=== PATIENT | female | born 1960 | race Caucasian/White ===

== ENCOUNTER 2021-03-10 00:16 | Observation (INO) | payer OTHER, SELFPAY ==
[2021-03-10 01:17] LABS: #Basophils 0.1 10x3/uL (0.0-0.2); #Eosinphils 0.2 10x3/uL (0.0-0.5); #Monocytes 0.5 10x3/uL (0.0-1.1); #Neutrophils 5.6 10x3/uL (1.5-8.4); %Basophils 0.9 % (0.0-2.0); %Eosinophils 1.6 % (0.0-6.0); %Lymphocytes 33.2 % (18.0-47.0); %Monocytes 5.5 % (0.0-10.0); %Neutrophils 58.3 % (40.0-75.0); Hemoglobin 17.5 g/dL (12.0-15.5); Mean Corpuscular HGB CONC 33.3 g/dL (32.0-36.0); Mean Corpuscular Volume 93.3 fl (81.6-98.3); Mean Platelet Volume 10.8 fl (7.4-10.4); Platelet Count 263 10x3/uL (150-450); RBC Distribution Width 13.1 % (11.5-14.5); Red Blood Cell (RBC) Count 5.64 10x6/uL (3.90-5.03); White Blood Cell (WBC) Count 9.6 10x3/uL (3.5-10.5)
[2021-03-10] MEDS ORDERED: Nitroglycerin 2% Ointment 1 INCH/1 GM Packet ONE (01:28)
[2021-03-10] MEDS ORDERED: Aspirin Chewable 81 MG TAB ONE ×2 (01:28→01:32)
[2021-03-10 01:34] LABS: ALT (SGPT) 16 U/L (8-55); AST (SGOT) 12 U/L (5-34); Albumin 4.5 g/dL (3.4-4.8); Alkaline Phosphatase 165 U/L (40-110); Anion Gap 17 mmol/L (10-20); BUN (Urea Nitrogen) 9 mg/dL (9.8-20.1); Bilirubin, Total 0.5 mg/dL (0.2-1.2); Calc. Creatinine Clearance 0 mL/min (70-130); Calcium 10.2 mg/dL (7.8-10.44); Carbon Dioxide 20 mmol/L (23-31); Chloride 105 mmol/L (98-107); Globulin 2.7 g/dL (2.4-3.5); Glucose 341 mg/dL (80-115); Potassium 3.8 mmol/L (3.5-5.1); Protein, Total 7.2 g/dL (5.8-8.1); Sodium 138 mmol/L (136-145)
[2021-03-10] MEDS ORDERED: Morphine 4 MG/ML VIAL ONE (01:48)
[2021-03-10] MEDS ORDERED: Calcium Carbonate 500 MG ChewTAB PO PRN (02:09)
[2021-03-10] MEDS ORDERED: Acetaminophen 325 MG TAB PO PRN (02:09)
[2021-03-10] MEDS ORDERED: HYDROcodone/Acetaminophen 5/325 mg Tablet PO PRN (02:09)
[2021-03-10] MEDS ORDERED: Ondansetron PF 4 MG/2 ML Vial IVP PRN (02:09)
[2021-03-10] MEDS ORDERED: Zolpidem Tartrate 5 MG TAB PO PRN (02:09)
[2021-03-10] MEDS ORDERED: Dextrose 50% Abboject 50 ML SYRINGE SLOW IVP PRN (02:09)
[2021-03-10] MEDS ORDERED: Guaifenesin DM 100-10/5 ML UDCUP PO PRN (02:09)
[2021-03-10] MEDS ORDERED: Dextrose 5% in Water 1,000 ML IV PRN (02:09)
[2021-03-10] MEDS ORDERED: HumaLOG 300 UNITS/3 ML VIAL SC PRN (02:09)
[2021-03-10] MEDS ORDERED: Senokot S 8.6-50 MG TAB PO PRN (02:09)
[2021-03-10] MEDS ORDERED: Nitroglycerin 0.4 MG TAB (25 Tab Bottle) SL PRN (02:12)
[2021-03-10] MEDS ORDERED: Enoxaparin Sodium 80 MG/0.8 ML SYRINGE ONE (04:16)
[2021-03-10 05:43] VITALS: BMI 27.6
[2021-03-10] MEDS ORDERED: Morphine 2 MG/ML VIAL SLOW IVP PRN (06:15)
[2021-03-10] MEDS ORDERED: Prevnar 13-Val Conj/PF 0.5 ML SYRINGE IM ONE (06:30)
[2021-03-10 06:47] LABS: Cardiac Risk 6.2 (Less than 4.5)
[2021-03-10] MEDS: Budesonide 0.5 MG/2 ML NEB NEB SCH ×2 (07:05→19:02)
[2021-03-10] MEDS ORDERED: Sodium Chloride 0.9% 500 ML IV SCH (07:30)
[2021-03-10] MEDS ORDERED: Artificial Tear Sol 15 ML BOT EA EYE PRN (07:35)
[2021-03-10] MEDS ORDERED: Cepastat Lozenges 1 LOZ PO PRN (07:35)
[2021-03-10] MEDS ORDERED: Ondansetron ODT 4 MG TAB PO PRN (07:35)
[2021-03-10] MEDS ORDERED: Loperamide HCl 2 MG CAP PO PRN (07:35)
[2021-03-10] MEDS ORDERED: Bisacodyl 5 MG TAB PO PRN (07:35)
[2021-03-10] MEDS ORDERED: Loratadine 10 MG TAB PO PRN (07:35)
[2021-03-10] MEDS ORDERED: Sodium Chloride 0.65% Nasal 44 ML BOT EA NARE PRN (07:35)
[2021-03-10] MEDS ORDERED: GUAIFENESIN SF SOLN 200 MG/10 ML UDCUP PO PRN (07:35)
[2021-03-10] MEDS ORDERED: Hydrocerin (Eucerin) Cream 120 gm Jar TOP PRN (07:35)
[2021-03-10] MEDS ORDERED: hydrALAZINE 20 MG/ML VIAL SLOW IVP PRN (07:35)
[2021-03-10] MEDS ORDERED: Benzonatate 100 MG CAP PO PRN (07:35)
[2021-03-10 09:28] LABS: Hemoglobin A1c 8.7 % (4.0-6.0)
[2021-03-10] MEDS ORDERED: Communication Order-Pharmacy FS SCH (10:15)
[2021-03-10 10:36] LABS: Anion Gap 13 mmol/L (10-20); BUN (Urea Nitrogen) 7 mg/dL (9.8-20.1); Calc. Creatinine Clearance 124 mL/min (70-130); Calcium 9.5 mg/dL (7.8-10.44); Carbon Dioxide 23 mmol/L (23-31); Chloride 106 mmol/L (98-107); Glucose 246 mg/dL (80-115); Potassium 3.8 mmol/L (3.5-5.1); Sodium 138 mmol/L (136-145)
[2021-03-10] MEDS: glipiZIDE 5 MG TAB PO SCH ×2 (11:29→18:30)
[2021-03-10] MEDS: Aspirin 81 mg Enteric Coated Tablet PO SCH (11:29)
[2021-03-10] MEDS: Gabapentin 300 MG CAP PO SCH ×2 (11:29→22:42)
[2021-03-10] MEDS: Losartan 25 MG TAB PO SCH (11:29)
[2021-03-10] MEDS: Carvedilol 6.25 MG TAB PO SCH ×2 (11:29→18:30)
[2021-03-10] MEDS ORDERED: Enoxaparin Sodium 80 MG/0.8 ML SYRINGE SC SCH (14:00)
[2021-03-10 16:36] LABS: SARS-CoV-2 NAA Rapid Test Not Detected (NotDetected)
[2021-03-10] MEDS: Atorvastatin Calcium 40 MG TAB PO SCH (22:41)
[2021-03-11 04:59] LABS: PTT 26.9 sec (22.0-33.0); Prothrombin Time 10.6 sec (9.5-12.1)
[2021-03-11 05:03] LABS: ALT (SGPT) 11 U/L (8-55); AST (SGOT) 12 U/L (5-34); Albumin 3.8 g/dL (3.4-4.8); Alkaline Phosphatase 110 U/L (40-110); Anion Gap 12 mmol/L (10-20); BUN (Urea Nitrogen) 8 mg/dL (9.8-20.1); Bilirubin, Total 0.5 mg/dL (0.2-1.2); Calc. Creatinine Clearance 143 mL/min (70-130); Calcium 9.6 mg/dL (7.8-10.44); Carbon Dioxide 23 mmol/L (23-31); Chloride 111 mmol/L (98-107); Globulin 2.2 g/dL (2.4-3.5); Glucose 144 mg/dL (80-115); Magnesium 1.9 mg/dL (1.6-2.6); Phosphorus 3.7 mg/dL (2.3-4.7); Potassium 3.7 mmol/L (3.5-5.1); Sodium 142 mmol/L (136-145)
[2021-03-11 05:11] LABS: #Basophils 0.1 10x3/uL (0.0-0.2); #Eosinphils 0.2 10x3/uL (0.0-0.5); #Monocytes 0.5 10x3/uL (0.0-1.1); #Neutrophils 3.8 10x3/uL (1.5-8.4); %Basophils 0.9 % (0.0-2.0); %Eosinophils 2.3 % (0.0-6.0); %Lymphocytes 35.8 % (18.0-47.0); %Monocytes 6.4 % (0.0-10.0); %Neutrophils 54.2 % (40.0-75.0); Hemoglobin 15.6 g/dL (12.0-15.5); Mean Platelet Volume 10.7 fl (7.4-10.4); Platelet Count 215 10x3/uL (150-450); RBC Distribution Width 13.1 % (11.5-14.5); Red Blood Cell (RBC) Count 5.03 10x6/uL (3.90-5.03)
[2021-03-11] MEDS: Sodium Chloride 0.9% 1,000 ML IV SCH ×2 (06:38→17:43)
[2021-03-11] MEDS: Gabapentin 300 MG CAP PO SCH ×2 (08:18→20:28)
[2021-03-11] MEDS: Losartan 25 MG TAB PO SCH (08:19)
[2021-03-11] MEDS: Aspirin 81 mg Enteric Coated Tablet PO SCH (08:19)
[2021-03-11] MEDS: Carvedilol 6.25 MG TAB PO SCH ×2 (08:19→17:43)
[2021-03-11] MEDS: glipiZIDE 5 MG TAB PO SCH ×2 (08:19→17:43)
[2021-03-11] MEDS ORDERED: Nitroglycerin 50 MG/250 ML BOT 250 ML ONE (12:24)
[2021-03-11] MEDS ORDERED: Heparin 10,000 UNITS/ 10 ML VIAL ONE (12:24)
[2021-03-11] MEDS ORDERED: Lidocaine 1% PF 5 ML VIAL ONE (12:24)
[2021-03-11] MEDS ORDERED: Adenosine 6 MG/2 ML VIAL ONE (12:25)
[2021-03-11] MEDS ORDERED: Verapamil 5 MG/2 ML VIAL ONE (12:25)
[2021-03-11] MEDS ORDERED: Bivalirudin 250 MG VIAL ONE (12:25)
[2021-03-11] MEDS ORDERED: Fentanyl 100 MCG/2 ML VIAL ONE (12:41)
[2021-03-11] MEDS ORDERED: Midazolam HCl 2 mg/2 ml Vial ONE (12:42)
[2021-03-11] MEDS ORDERED: TICAGRELOR 90 MG TABLET ONE (12:47)
[2021-03-11] MEDS ORDERED: Nitroglycerin 0.4 MG TAB (25 Tab Bottle) SL PRN (13:44)
[2021-03-11] MEDS ORDERED: Acetaminophen/Codeine 30-300mg Tablet PO PRN ×2 (13:44)
[2021-03-11] MEDS ORDERED: Sodium Chloride 0.9% 200 ML IV PRN (13:44)
[2021-03-11] MEDS ORDERED: Heparin 1,000 UNITS/ML VIAL ONE (13:50)
[2021-03-11] MEDS: Budesonide 0.5 MG/2 ML NEB NEB SCH ×2 (17:43→20:37)
[2021-03-11 20:21] VITALS: BP 116/72; TEMP 97
[2021-03-11] MEDS: Atorvastatin Calcium 40 MG TAB PO SCH (20:27)
[2021-03-11] MEDS ORDERED: TICAGRELOR 90 MG TABLET PO SCH (21:00)
[2021-03-12] MEDS ORDERED: Clopidogrel Bisulfate 75 MG TAB PO SCH (09:00)
== END 2021-03-11 20:30 | disposition home or self-care (01) ==
LOC: CSHERS 00:16 → CSHTELE 05:20
PROVIDERS: ADMIT Student in an Organized Health Care Education/Training Program; ATTEND Hospitalist
DX: I25.110 Atherosclerotic heart disease of native coronary artery with unstable angina pectoris (principal); F17.210 Nicotine dependence, cigarettes, uncomplicated; J44.9 Chronic obstructive pulmonary disease, unspecified; E11.22 Type 2 diabetes mellitus with diabetic chronic kidney disease; I13.10 Hypertensive heart and chronic kidney disease without heart failure, with stage 1 through stage 4 chronic kidney disease, or unspecified chronic kidney disease; N18.2 Chronic kidney disease, stage 2 (mild); E11.65 Type 2 diabetes mellitus with hyperglycemia; E11.40 Type 2 diabetes mellitus with diabetic neuropathy, unspecified; D75.1 Secondary polycythemia; E78.5 Hyperlipidemia, unspecified; Z95.5 Presence of coronary angioplasty implant and graft; Z20.822 Contact with and (suspected) exposure to COVID-19; Z71.6 Tobacco abuse counseling; Z79.891 Long term (current) use of opiate analgesic; Z79.899 Other long term (current) drug therapy; Z79.82 Long term (current) use of aspirin; Z79.84 Long term (current) use of oral hypoglycemic drugs; Z88.2 Allergy status to sulfonamides
CPT/HCPCS: 36415; 36416; 71045; 80053; 80061; 82553; 83036; 83735; 83880; 84100; 84484; 85025; 85347; 85610; 85730; 92928; 93005; 93306; 93458; 94640; 96372; 96374; 99152; 99153; C1874; C1887; C9600; G0378; J0153; J0583; J1644; J1650; J2250; J2270; J3010; J7030; J7050; J7626; U0002

== ENCOUNTER 2023-12-09 13:16 | Emergency (ER) | payer SELFPAY ==
[2023-12-09] MEDS ORDERED: traMADol HCl 50 MG TAB ONE (15:10)
== END 2023-12-09 15:55 | disposition home or self-care (01) ==
LOC: CSHERS 13:16
DX: S82.032A Displaced transverse fracture of left patella, initial encounter for closed fracture (principal); I87.8 Other specified disorders of veins; M25.462 Effusion, left knee; E11.9 Type 2 diabetes mellitus without complications; I10 Essential (primary) hypertension; F17.210 Nicotine dependence, cigarettes, uncomplicated; W19.XXXA Unspecified fall, initial encounter

== ENCOUNTER 2024-06-14 05:38 | Day surgery (SDC) | payer OTHER ==
[2024-06-13 14:45] VITALS: BMI 27.5
[2024-06-14] MEDS ORDERED: Bupivacaine HCl 0.5%/Epinephrine 1:200,000/PF 30 ml Vial ONE (06:14)
[2024-06-14] MEDS ORDERED: Lidocaine 2% PF 5 ML VIAL ONE (06:41)
[2024-06-14] MEDS ORDERED: PROPOFOL 20 ML ONE (06:42)
[2024-06-14] MEDS ORDERED: CEFAZOLIN 2 GM VIAL ONE (06:56)
[2024-06-14] MEDS ORDERED: Dexamethasone 4 mg/ml Vial ONE (07:03)
[2024-06-14] MEDS ORDERED: Ondansetron PF 4 MG/2 ML Vial ONE (07:03)
[2024-06-14] MEDS ORDERED: fentaNYL 50 mcg/mL 1 mL Vial ONE (07:13)
[2024-06-14] MEDS ORDERED: HYDROcodone/Acetaminophen 5/325 mg Tablet ONE (08:19)
== END 2024-06-14 08:55 | disposition home or self-care (01) ==
LOC: CSHSDC 05:38
PROVIDERS: ATTEND Surgery
PROC: 0JH63WZ Insertion of Totally Implantable Vascular Access Device into Chest Subcutaneous Tissue and Fascia, Percutaneous Approach (ICD-10-PCS; principal; 2024-06-14)
DX: C34.31 Malignant neoplasm of lower lobe, right bronchus or lung (principal); E78.00 Pure hypercholesterolemia, unspecified; E11.9 Type 2 diabetes mellitus without complications; F41.9 Anxiety disorder, unspecified; M81.0 Age-related osteoporosis without current pathological fracture; I25.10 Atherosclerotic heart disease of native coronary artery without angina pectoris; I48.0 Paroxysmal atrial fibrillation; E78.5 Hyperlipidemia, unspecified; I73.9 Peripheral vascular disease, unspecified; I11.0 Hypertensive heart disease with heart failure; I50.9 Heart failure, unspecified; Z86.73 Personal history of transient ischemic attack (TIA), and cerebral infarction without residual deficits; Z88.2 Allergy status to sulfonamides; Z79.51 Long term (current) use of inhaled steroids; Z79.84 Long term (current) use of oral hypoglycemic drugs; Z87.891 Personal history of nicotine dependence; Z79.899 Other long term (current) drug therapy; Z79.01 Long term (current) use of anticoagulants
CPT/HCPCS: 36561; 71045; J1100; J1642; J2405; J2704; J3010; A6258; C1788

== ENCOUNTER 2024-07-08 17:13 | Inpatient (IN) | payer OTHER ==
[2024-07-08 18:07] LABS: Phosphorus 2.3 mg/dL (2.3-4.7)
[2024-07-08 18:09] LABS: ALT (SGPT) 69 U/L (8-55); AST (SGOT) 51 U/L (5-34); Albumin 3.6 g/dL (3.4-4.8); Alkaline Phosphatase 138 U/L (40-110); Anion Gap 16 mmol/L (10-20); BUN (Urea Nitrogen) 12 mg/dL (9.8-20.1); Bilirubin, Total 0.6 mg/dL (0.2-1.2); Calc. Creatinine Clearance 0 mL/min (70-130); Calcium 9.4 mg/dL (7.8-10.44); Carbon Dioxide 31 mmol/L (23-31); Chloride 97 mmol/L (98-107); Estimated GFR 67; Globulin 3.1 g/dL (2.4-3.5); Protein, Total 6.7 g/dL (5.8-8.1); Sodium 142 mmol/L (136-145)
[2024-07-08 18:13] LABS: #Basophils 0.05 10x3/uL (0.0-0.2); #Eosinophils 0.03 10x3/uL (0.0-0.5); #Monocytes 0.38 10x3/uL (0.0-1.1); #Neutrophils 4.15 10x3/uL (1.5-8.4); %Basophils 0.8 % (0.0-2.0); %Eosinophils 0.5 % (0.0-6.0); %Monocytes 5.7 % (0.0-10.0); %Neutrophils 62.7 % (40.0-75.0); Hemoglobin 14.9 g/dL (12.0-15.5); Mean Corpuscular HGB CONC 34.7 g/dL (32.0-36.0); Mean Corpuscular Hemoglobin 30.5 pg (27.0-33.0); Mean Corpuscular Volume 88.1 fL (81.6-98.3); Mean Platelet Volume 10.3 fL (7.4-10.4); Platelet Count 97 10x3/uL (150-450); RBC Distribution Width 14.4 % (11.5-14.5); RBC Morph Comment Within Normal Limits; Red Blood Cell (RBC) Count 4.88 10x6/uL (3.90-5.03); White Blood Cell (WBC) Count 6.61 10x3/uL (3.5-10.5)
[2024-07-08 18:14] LABS: Platelet Adequacy Comment Platelets Decreased
[2024-07-08 18:16] LABS: Glucose 503 mg/dL (80-115); Potassium 2.3 mmol/L (3.5-5.1)
[2024-07-08] MEDS ORDERED: Potassium Chloride 20 MEQ TAB ONE (18:17)
[2024-07-08] MEDS ORDERED: Senokot S 8.6-50 MG TAB PO PRN (18:49)
[2024-07-08] MEDS ORDERED: Calcium Carbonate 500 MG ChewTAB PO PRN (18:49)
[2024-07-08] MEDS ORDERED: Ondansetron PF 4 MG/2 ML Vial IVP PRN (18:49)
[2024-07-08] MEDS ORDERED: Acetaminophen 325 MG TAB PO PRN (18:49)
[2024-07-08] MEDS ORDERED: Ondansetron ODT 4 MG TAB PO PRN (18:49)
[2024-07-08] MEDS ORDERED: Gabapentin 100 MG CAP PO PRN (18:50)
[2024-07-08] MEDS ORDERED: traMADol HCl 50 MG TAB PO PRN (18:50)
[2024-07-08] MEDS ORDERED: Dextrose 5% in Water 1,000 ML IV PRN (18:52)
[2024-07-08] MEDS ORDERED: Glucagon 1 MG/ML KIT IM PRN (18:52)
[2024-07-08] MEDS ORDERED: Dextrose 50% Abboject 50 ML SYRINGE SLOW IVP PRN (18:52)
[2024-07-08] MEDS ORDERED: Potassium Chloride 20 MEQ TAB PO ONE (19:30)
[2024-07-08] MEDS ORDERED: Ventolin HFA Inhaler 60 PUFF INHALER INH PRN (20:15)
[2024-07-08] MEDS: Potassium Chloride 40 MEQ in Sodium Chloride 0.9% 500 ML IVPB SCH (21:00)
[2024-07-08 21:09] VITALS: BMI 26.4
[2024-07-08 21:17] LABS: Glucose POC Confirmation 370 mg/dL (80-115)
[2024-07-08] MEDS: Magnesium 2 GM/50 ML(in water) 2 GM in Premix 1 BAG IVPB SCH (21:28)
[2024-07-08] MEDS: Sodium Chloride 0.9% 500 ML IV SCH (21:36)
[2024-07-08] MEDS: HYDROcodone/Acetaminophen 10/325 mg Tablet PO PRN (21:37)
[2024-07-08] MEDS: Dronedarone HCl 400 MG TAB PO SCH (21:38)
[2024-07-08] MEDS: Apixaban 5 MG TAB PO SCH (21:38)
[2024-07-08] MEDS: Carvedilol 6.25 MG TAB PO SCH (21:38)
[2024-07-08] MEDS: Insulin Lispro 100 UNIT/ML 10 ML VIAL SC PRN (21:56)
[2024-07-08] MEDS: Lantus 1000 UNITS/10 ML VIAL SC SCH (22:20)
[2024-07-09 00:56] LABS: Anion Gap 14 mmol/L (10-20); BUN (Urea Nitrogen) 12 mg/dL (9.8-20.1); Calc. Creatinine Clearance 113 mL/min (70-130); Calcium 8.6 mg/dL (7.8-10.44); Carbon Dioxide 29 mmol/L (23-31); Chloride 104 mmol/L (98-107); Estimated GFR 99; Glucose 261 mg/dL (80-115); Magnesium 2.5 mg/dL (1.6-2.6); Sodium 145 mmol/L (136-145)
[2024-07-09 01:02] LABS: Critical Call Chemistry NUR.AS9@0101; Potassium 2.5 mmol/L (3.5-5.1)
[2024-07-09] MEDS: Potassium Chloride 20 MEQ TAB PO SCH ×2 (01:34→08:37)
[2024-07-09] MEDS: NS 0.9% w/ 40 MEQ KCL 1,000 ML IV SCH (01:34)
[2024-07-09 04:55] LABS: Platelet Count 81 10x3/uL (150-450)
[2024-07-09 04:56] LABS: INR-International Normal Ratio 1.1; PTT 22.4 sec (22.0-33.0); Prothrombin Time 11.4 sec (9.5-12.1)
[2024-07-09 05:05] LABS: ALT (SGPT) 57 U/L (8-55); AST (SGOT) 41 U/L (5-34); Alkaline Phosphatase 103 U/L (40-110); Anion Gap 16 mmol/L (10-20); BUN (Urea Nitrogen) 12 mg/dL (9.8-20.1); Bilirubin, Total 0.5 mg/dL (0.2-1.2); Calc. Creatinine Clearance 115 mL/min (70-130); Calcium 8.6 mg/dL (7.8-10.44); Carbon Dioxide 27 mmol/L (23-31); Chloride 105 mmol/L (98-107); Estimated GFR 99; Globulin 2.6 g/dL (2.4-3.5); Glucose 231 mg/dL (80-115); Magnesium 2.3 mg/dL (1.6-2.6); Potassium 2.8 mmol/L (3.5-5.1); Protein, Total 5.6 g/dL (5.8-8.1); Sodium 145 mmol/L (136-145)
[2024-07-09 05:34] LABS: Hematocrit 38.6 % (34.9-44.5); Hemoglobin 12.8 g/dL (12.0-15.5); Mean Corpuscular HGB CONC 33.2 g/dL (32.0-36.0); Mean Corpuscular Hemoglobin 29.4 pg (27.0-33.0); Mean Corpuscular Volume 88.7 fL (81.6-98.3); Mean Platelet Volume 10.7 fL (7.4-10.4); RBC Distribution Width 14.2 % (11.5-14.5); Red Blood Cell (RBC) Count 4.35 10x6/uL (3.90-5.03); White Blood Cell (WBC) Count 6.71 10x3/uL (3.5-10.5)
[2024-07-09 05:47] LABS: Band 12 % (5-11); Eosinophils 1 % (0-10); Lymphocytes 33 % (21-51); MDiff Complete? YES; Metamyelocyte 3 % (0-0); Monocytes 4 % (0-10); Neutrophil 45 % (42-75); Nucleated RBC (Manual Ct) 3 % (0); Platelet Adequacy Comment Appears Decreased; Polychromasia SLIGHT = 2-3 cells (100X) (0-2/hpf); Reactive Lymphocytes 2 % (0-10)
[2024-07-09] MEDS: Insulin Lispro 100 UNIT/ML 10 ML VIAL SC PRN (05:55)
[2024-07-09] MEDS: Rosuvastatin 20 MG TAB PO SCH (08:37)
[2024-07-09] MEDS: Ezetimibe 10 MG TAB PO SCH (08:37)
[2024-07-09] MEDS: Glimepiride 4 MG TAB PO SCH (08:37)
[2024-07-09] MEDS: metFORMIN 500 MG TAB PO SCH (08:38)
[2024-07-09 09:51] LABS: Potassium 2.8 mmol/L (3.5-5.1)
[2024-07-09] MEDS: Potassium Bicarbonate/Cit Ac 20 MEQ TAB PO SCH (12:05)
[2024-07-09 12:52] LABS: Hemoglobin A1c 8.7 % (4.0-6.0)
[2024-07-10] MEDS: Potassium Chloride 20 MEQ TAB PO SCH (00:42)
[2024-07-10] MEDS: Lorazepam 0.5 MG TAB PO PRN (00:47)
[2024-07-10] MEDS: HYDROcodone/Acetaminophen 10/325 mg Tablet PO PRN (01:42)
[2024-07-10 04:56] LABS: Anion Gap 14 mmol/L (10-20); BUN (Urea Nitrogen) 11 mg/dL (9.8-20.1); Calc. Creatinine Clearance 118 mL/min (70-130); Calcium 9.1 mg/dL (7.8-10.44); Carbon Dioxide 26 mmol/L (23-31); Chloride 107 mmol/L (98-107); Estimated GFR 100; Glucose 197 mg/dL (80-115); Magnesium 1.9 mg/dL (1.6-2.6); Potassium 3.8 mmol/L (3.5-5.1); Sodium 143 mmol/L (136-145)
[2024-07-10 04:59] LABS: Hematocrit 38.4 % (34.9-44.5); Hemoglobin 13.2 g/dL (12.0-15.5); Mean Corpuscular HGB CONC 34.4 g/dL (32.0-36.0); Mean Corpuscular Hemoglobin 30.8 pg (27.0-33.0); Mean Corpuscular Volume 89.5 fL (81.6-98.3); Mean Platelet Volume 10.1 fL (7.4-10.4); Platelet Count 80 10x3/uL (150-450); RBC Distribution Width 14.7 % (11.5-14.5); Red Blood Cell (RBC) Count 4.29 10x6/uL (3.90-5.03); White Blood Cell (WBC) Count 6.85 10x3/uL (3.5-10.5)
[2024-07-10 05:56] LABS: Band 13 % (5-11); Eosinophils 1 % (0-10); Lymphocytes 27 % (21-51); MDiff Complete? YES; Metamyelocyte 4 % (0-0); Monocytes 4 % (0-10); Neutrophil 48 % (42-75); Platelet Adequacy Comment Appears Decreased; Polychromasia SLIGHT = 2-3 cells (100X) (0-2/hpf); Reactive Lymphocytes 3 % (0-10)
[2024-07-10] MEDS: Magnesium Oxide 400 MG TAB PO SCH (08:43)
[2024-07-10 09:59] VITALS: BP 158/80; TEMP 97.2
== END 2024-07-10 10:18 | disposition home or self-care (01) | DRG 641 ==
LOC: SUATTDRO 17:13 → CSHERS 17:13 → CSHTELE 18:50 → OBSVTOIN 07-10 09:12
PROVIDERS: ADMIT Internal Medicine; ATTEND Hospitalist
DX: E87.6 Hypokalemia (principal); C34.90 Malignant neoplasm of unspecified part of unspecified bronchus or lung; I13.0 Hypertensive heart and chronic kidney disease with heart failure and stage 1 through stage 4 chronic kidney disease, or unspecified chronic kidney disease; N17.9 Acute kidney failure, unspecified; C79.51 Secondary malignant neoplasm of bone; C77.9 Secondary and unspecified malignant neoplasm of lymph node, unspecified; I48.91 Unspecified atrial fibrillation; I25.10 Atherosclerotic heart disease of native coronary artery without angina pectoris; N18.9 Chronic kidney disease, unspecified; E78.5 Hyperlipidemia, unspecified; E11.22 Type 2 diabetes mellitus with diabetic chronic kidney disease; E11.65 Type 2 diabetes mellitus with hyperglycemia; Z95.5 Presence of coronary angioplasty implant and graft; Z90.49 Acquired absence of other specified parts of digestive tract; Z88.2 Allergy status to sulfonamides; Z79.01 Long term (current) use of anticoagulants; Z79.899 Other long term (current) drug therapy
CPT/HCPCS: 36415; 36416; 80048; 80053; 82010; 83036; 83615; 83735; 84100; 84550; 85025; 85610; 85730; 93005; 93970; 94760; 96375; G0378; J1815; J3475; J3480; J7030